=== PATIENT | female | born 1955 | race Caucasian/White ===

== ENCOUNTER 2022-01-25 10:09 | Inpatient (IN) | payer MEDICARE, OTHER ==
[~2022-01-25] VITALS: Ht 149.9 cm; Wt 59.2 kg
[~2022-01-25 10:09] MED LIST: INSLAN SQ; INSNOV SQ; METH10 PO
[2022-01-25 10:36] LABS: GLUCOMETER DEV NAME(LOC) ERT.5; GLUCOSE,POINT OF CARE 193 MG/DL (70-110)
[2022-01-25 11:48] LABS: BASOPHILS % (AUTO) 0.2 % (0.0-2.0); EOSINOPHILS % (AUTO) 0.3 % (1.0-6.0); HEMATOCRIT 27.5 % (36-46); HEMOGLOBIN 9.2 g/dL (12.0-16.0); LYMPHOCYTES # (AUTO) 0.7 K/uL (1.0-4.8); LYMPHOCYTES % (AUTO) 6.3 % (22.0-44.0); MEAN CORPUSCULAR HEMOGLOBIN 29.8 pg (26.0-34.0); MEAN CORPUSCULAR HGB CONC 33.3 G/dL (31.0-37.0); MEAN CORPUSCULAR VOLUME 89 fL (80-100); MONOCYTES # (AUTO) 0.7 K/uL (0.1-1.0); MONOCYTES % (AUTO) 6.4 % (2.0-9.0); NEUTROPHILS # (AUTO) 9.5 K/uL (1.8-7.7); PLATELET COUNT (AUTO) 579 K/uL (150-450); RED BLOOD CELL COUNT(AUTO) 3.07 MIL/uL (4.00-5.20); RED CELL DISTRIBUTION WIDTH 15.8 % (11.5-14.5)
[2022-01-25 11:49] LABS: NEUTROPHILS % (AUTO) 86.8 % (40.0-70.0)
[2022-01-25 12:02] LABS: CALCIUM, TOTAL 8.5 mg/dL (8.8-10.5); CREATININE 3.07 mg/dL (0.60-1.30); POTASSIUM 5.5 mmol/L (3.5-5.1)
[2022-01-25 12:04] LABS: ALBUMIN 1.2 g/dL (3.4-5.0); TOTAL PROTEIN, SERUM 6.3 g/dL (6.4-8.2)
[2022-01-25 12:16] LABS: COVID AG,FIA SOURCE NASOPHARYNGEAL
[2022-01-25 12:26] LABS: BILIRUBIN,TOTAL 0.1 mg/dL (0.1-1.0)
[2022-01-25] MEDS ORDERED: OxyCODONE HCL/ACETAMINOPHEN 5-325 MG TABLET PO PRN (12:30)
[2022-01-25] MEDS ORDERED: ACETAMINOPHEN 325 MG TABLET PO PRN (12:30)
[2022-01-25] MEDS ORDERED: DEXTROSE 50%-WATER 25 GM/50 ML SYRINGE IVP PRN (12:30)
[2022-01-25] MEDS ORDERED: ONDANSETRON HCL 4 MG/2 ML VIAL IVP PRN (12:30)
[2022-01-25] MEDS ORDERED: FUROSEMIDE 20 MG/2 ML VIAL IVP SCH (13:45)
[2022-01-25] MEDS: METHADONE HCL 10 MG TABLET PO SCH (14:05)
[2022-01-25 14:28] LABS: APPEARANCE,URINE CLEAR (CLEAR); BILIRUBIN,URINE NEGATIVE (NEGATIVE); GLUCOSE, URINE (UA) 300-500 mg/dL (NEGATIVE); KETONES,URINE NEGATIVE (NEGATIVE); LEUKOCYTE ESTERASE ,URINE NEGATIVE (NEGATIVE); NITRATE,URINE NEGATIVE (NEGATIVE); OCCULT BLOOD,URINE TRACE (NEGATIVE); PH,URINE 6.5 (5.0-8.0); PROTEIN,URINE >600,SEE CONFIRM mg/dL (NEGATIVE); SPECIFIC GRAVITIY, URINE 1.017 (1.003-1.030); UROBILINOGEN,URINE <=1.0 mg/dL (<=1.0)
[2022-01-25 14:48] LABS: BACTERIA,URINE None Seen /HPF (None Seen); RBC,URINE 0-2 /HPF (0-2); WBC,URINE None Seen /HPF (0-5)
[2022-01-25 14:49] LABS: SULFOSALICYLIC ACID,URINE 3+ (Negative)
[2022-01-25 17:41] VITALS: BP 116/65
[2022-01-25] MEDS: SODIUM ZIRCONIUM CYCLOSILICATE 5 GM POWDER PACKET PO SCH (19:07)
[2022-01-25] MEDS ORDERED: PNEUMOCOCCAL VACCINE POLYVALENT 0.5 ML VIAL [PPSV23] IM. ONE (19:15)
[2022-01-25 19:29] VITALS: BP 132/88
[2022-01-25 20:15] LABS: APPEARANCE,URINE CLEAR (CLEAR); BILIRUBIN,URINE NEGATIVE (NEGATIVE); GLUCOSE, URINE (UA) 70-100 mg/dL (NEGATIVE); KETONES,URINE NEGATIVE (NEGATIVE); LEUKOCYTE ESTERASE ,URINE NEGATIVE (NEGATIVE); NITRATE,URINE NEGATIVE (NEGATIVE); OCCULT BLOOD,URINE TRACE (NEGATIVE); PROTEIN,URINE 300-600,SEE CONFIRM mg/dL (NEGATIVE); SPECIFIC GRAVITIY, URINE 1.009 (1.003-1.030); UROBILINOGEN,URINE <=1.0 mg/dL (<=1.0)
[2022-01-25] MEDS: DOCUSATE SODIUM 100 MG CAPSULE PO SCH (20:46)
[2022-01-25] MEDS: HEPARIN SODIUM,PORCINE 5,000 UNITS/ML VIAL SQ SCH (20:47)
[2022-01-25] MEDS: FUROSEMIDE 40 MG/4 ML VIAL IVP SCH (20:47)
[2022-01-25] MEDS: OxyCODONE HCL/ACETAMINOPHEN 5-325 MG TABLET PO PRN (20:48)
[2022-01-25] MEDS: INSULIN LISPRO 100 UNITS/ML SQ PRN (21:07)
[2022-01-25 21:26] LABS: GLUCOMETER DEV NAME(LOC) 5S.2B; GLUCOSE,POINT OF CARE 190 MG/DL (70-110)
[2022-01-25 23:52] VITALS: BP 142/77
[2022-01-26 03:38] LABS: BACTERIA,URINE None Seen /HPF (None Seen); RBC,URINE 0-2 /HPF (0-2); WBC,URINE None Seen /HPF (0-5)
[2022-01-26 03:39] LABS: SQUAMOUS EPITHELIAL CELL,UR Few /LPF (None Seen)
[2022-01-26 03:57] LABS: SODIUM,URINE RANDOM 73 mmol/l (20-110); UREA NITROGEN,URINE RANDOM 182 mg/dL (350-1000)
[2022-01-26 04:12] LABS: CREATININE,URINE RANDOM 11.6 mg/dL (30.0-125.0)
[2022-01-26 04:29] VITALS: BP 130/69
[2022-01-26 05:12] LABS: PROTEIN,URINE RANDOM 402 mg/dL (0-11.9)
[2022-01-26] MEDS: OxyCODONE HCL/ACETAMINOPHEN 5-325 MG TABLET PO PRN (05:48)
[2022-01-26 06:06] LABS: GLUCOMETER DEV NAME(LOC) 5N.1C; GLUCOSE,POINT OF CARE 132 MG/DL (70-110)
[2022-01-26] MEDS: INSULIN LISPRO 100 UNITS/ML SQ PRN ×2 (06:35→17:41)
[2022-01-26 07:19] LABS: % IRON SATURATION 13.9 % (22-44)
[2022-01-26 07:23] LABS: CALCIUM, TOTAL 8.5 mg/dL (8.8-10.5); CREATININE 3.17 mg/dL (0.60-1.30)
[2022-01-26 07:50] VITALS: BP 123/73
[2022-01-26] MEDS: FUROSEMIDE 40 MG/4 ML VIAL IVP SCH ×2 (08:04→20:20)
[2022-01-26] MEDS: FAMOTIDINE 20 MG TABLET PO SCH (08:10)
[2022-01-26] MEDS: SODIUM ZIRCONIUM CYCLOSILICATE 5 GM POWDER PACKET PO SCH (08:10)
[2022-01-26] MEDS: HEPARIN SODIUM,PORCINE 5,000 UNITS/ML VIAL SQ SCH (08:10)
[2022-01-26] MEDS: DOCUSATE SODIUM 100 MG CAPSULE PO SCH ×2 (08:11→20:20)
[2022-01-26] MEDS: METHADONE HCL 10 MG TABLET PO SCH (08:11)
[2022-01-26 11:50] VITALS: BP 123/73
[2022-01-26 12:01] LABS: GLUCOMETER DEV NAME(LOC) 5N.1C; GLUCOSE,POINT OF CARE 108 MG/DL (70-110)
[2022-01-26 12:01] LABS: GLUCOMETER DEV NAME(LOC) 5S.2B; GLUCOSE,POINT OF CARE 216 MG/DL (70-110)
[2022-01-26 16:15] VITALS: BP 124/58
[2022-01-26 18:42] LABS: GLUCOMETER DEV NAME(LOC) 5N.1C; GLUCOSE,POINT OF CARE 174 MG/DL (70-110)
[2022-01-26 20:29] VITALS: BP 121/74
[2022-01-26 20:40] LABS: GLUCOMETER DEV NAME(LOC) 5N.1C; GLUCOSE,POINT OF CARE 135 MG/DL (70-110)
[2022-01-27 00:04] VITALS: BP 146/70
[2022-01-27 04:42] VITALS: BP 115/61
[2022-01-27 06:26] LABS: GLUCOMETER DEV NAME(LOC) 5N.1C; GLUCOSE,POINT OF CARE 122 MG/DL (70-110)
[2022-01-27 07:37] LABS: PROTHROMBIN TIME 11.1 SEC (9.4-11.6)
[2022-01-27 08:10] VITALS: BP 121/67
[2022-01-27] MEDS: SODIUM ZIRCONIUM CYCLOSILICATE 5 GM POWDER PACKET PO SCH (09:00)
[2022-01-27] MEDS: FUROSEMIDE 40 MG/4 ML VIAL IVP SCH ×2 (09:02→20:50)
[2022-01-27] MEDS: METHADONE HCL 10 MG TABLET PO SCH (09:04)
[2022-01-27] MEDS: DOCUSATE SODIUM 100 MG CAPSULE PO SCH ×2 (09:05→20:50)
[2022-01-27] MEDS: FAMOTIDINE 20 MG TABLET PO SCH (09:05)
[2022-01-27] MEDS: SOD FERRIC GLUC COMPLX/SUCROSE 125 MG in SODIUM CHLORIDE 0.9% 100 ML IV SCH (11:00)
[2022-01-27] MEDS ORDERED: SODIUM CHLORIDE 0.9% 1,000 ML ONE (11:34)
[2022-01-27 12:09] VITALS: BP 130/78
[2022-01-27] MEDS ORDERED: MIDAZOLAM HCL 2 MG/2 ML VIAL ONE (12:35)
[2022-01-27] MEDS ORDERED: FentaNYL CITRATE PF 100 MCG/2 ML VIAL ONE (12:35)
[2022-01-27] MEDS ORDERED: FLUMAZENIL 0.1 MG/ML 5 ML VIAL IVP ONE (12:36)
[2022-01-27] MEDS ORDERED: NALOXONE HCL 0.4 MG/ML VIAL ONE (12:36)
[2022-01-27] MEDS ORDERED: GELATIN SPONGE,ABSORBABLE 12-7 MM TP ONE (12:36)
[2022-01-27] MEDS ORDERED: LIDOCAINE/PF 1% 30 ML VIAL ONE (12:36)
[2022-01-27 13:21] LABS: GLUCOMETER DEV NAME(LOC) 5N.1C; GLUCOSE,POINT OF CARE 137 MG/DL (70-110)
[2022-01-27] MEDS ORDERED: MIDAZOLAM HCL 2 MG/2 ML VIAL IVP ONE (14:15)
[2022-01-27] MEDS ORDERED: FentaNYL CITRATE PF 100 MCG/2 ML VIAL IVP ONE (14:15)
[2022-01-27] MEDS ORDERED: ESCI10 PO (14:23)
[2022-01-27] MEDS ORDERED: METF-446 PO (14:23)
[2022-01-27 15:01] VITALS: BP 148/81
[2022-01-27] MEDS ORDERED: METHADONE HCL 10 MG TABLET PO ONE (15:30)
[2022-01-27] MEDS: VITAMIN B COMP/VIT C/FOLIC ACID CAPSULE PO SCH (15:45)
[2022-01-27] MEDS: INSULIN LISPRO 100 UNITS/ML SQ PRN ×2 (18:10→20:50)
[2022-01-27 18:36] LABS: GLUCOMETER DEV NAME(LOC) 5S.2B; GLUCOSE,POINT OF CARE 249 MG/DL (70-110)
[2022-01-27 20:21] LABS: GLUCOMETER DEV NAME(LOC) 5S.2B; GLUCOSE,POINT OF CARE 178 MG/DL (70-110)
[2022-01-27 20:39] VITALS: BP_SYST 114; BP_SYST 135; BP_DIAS 63; BP_DIAS 73
[2022-01-28 00:19] VITALS: BP 131/70
[2022-01-28 04:06] LABS: HIV 1-2 SCREEN 4TH GEN W/RFLX Non Reactive (Non Reactive)
[2022-01-28 05:02] VITALS: BP 132/71
[2022-01-28 06:21] LABS: GLUCOMETER DEV NAME(LOC) 5N.1C; GLUCOSE,POINT OF CARE 150 MG/DL (70-110)
[2022-01-28 07:34] LABS: BASOPHILS % (AUTO) 0.8 % (0.0-2.0); EOSINOPHILS % (AUTO) 1.9 % (1.0-6.0); HEMATOCRIT 28.7 % (36-46); HEMOGLOBIN 9.5 g/dL (12.0-16.0); LYMPHOCYTES # (AUTO) 1.2 K/uL (1.0-4.8); LYMPHOCYTES % (AUTO) 18.8 % (22.0-44.0); MEAN CORPUSCULAR HGB CONC 33.3 G/dL (31.0-37.0); MEAN CORPUSCULAR VOLUME 87 fL (80-100); MONOCYTES # (AUTO) 0.8 K/uL (0.1-1.0); MONOCYTES % (AUTO) 12.9 % (2.0-9.0); NEUTROPHILS # (AUTO) 4.1 K/uL (1.8-7.7); NEUTROPHILS % (AUTO) 65.6 % (40.0-70.0); PLATELET COUNT (AUTO) 602 K/uL (150-450); RED BLOOD CELL COUNT(AUTO) 3.29 MIL/uL (4.00-5.20); RED CELL DISTRIBUTION WIDTH 15.6 % (11.5-14.5)
[2022-01-28 07:47] LABS: CALCIUM, TOTAL 8.5 mg/dL (8.8-10.5); CREATININE 3.25 mg/dL (0.60-1.30); MAGNESIUM 2.6 mg/dL (1.80-2.40); PHOSPHORUS 5.9 mg/dL (2.5-4.9); POTASSIUM 3.7 mmol/L (3.5-5.1)
[2022-01-28 07:55] VITALS: BP 162/76
[2022-01-28 08:07] LABS: HEPATITIS C AB (EIA) >11.0 s/co ratio (0.0-0.9)
[2022-01-28] MEDS ORDERED: METHADONE HCL 10 MG TABLET PO SCH (09:00)
[2022-01-28] MEDS: FAMOTIDINE 20 MG TABLET PO SCH (09:03)
[2022-01-28] MEDS: FUROSEMIDE 40 MG/4 ML VIAL IVP SCH (09:04)
[2022-01-28] MEDS: VITAMIN B COMP/VIT C/FOLIC ACID CAPSULE PO SCH (09:10)
[2022-01-28] MEDS: DOCUSATE SODIUM 100 MG CAPSULE PO SCH (09:12)
[2022-01-28] MEDS ORDERED: FURO20 PO (09:48)
[2022-01-28] MEDS: SOD FERRIC GLUC COMPLX/SUCROSE 125 MG in SODIUM CHLORIDE 0.9% 100 ML IV SCH (11:26)
[2022-01-28] MEDS: INSULIN LISPRO 100 UNITS/ML SQ PRN (12:15)
[2022-01-28 18:11] LABS: GLUCOMETER DEV NAME(LOC) 5S.2B; GLUCOSE,POINT OF CARE 332 MG/DL (70-110)
[2022-01-30 13:06] LABS: ALPHA-1 (IFE & PEP) 0.5 g/dL (0.0-0.4); BETA (IFE & ELP) 0.9 g/dL (0.7-1.3); GAMMA GLOBULINS (IFE & ELP) 1.5 g/dL (0.4-1.8); IGM (IMMUNOFIXATION) 298 mg/dL (26-217)
== END 2022-01-28 14:55 | disposition home or self-care (01) | DRG 469 ==
LOC: EMS 10:09 → 5S 15:24
PROVIDERS: ADMIT Internal Medicine; ATTEND Internal Medicine
DX: N17.9 Acute kidney failure, unspecified (principal); I27.20 Pulmonary hypertension, unspecified; D63.1 Anemia in chronic kidney disease; E88.09 Other disorders of plasma-protein metabolism, not elsewhere classified; E87.1 Hypo-osmolality and hyponatremia; E11.22 Type 2 diabetes mellitus with diabetic chronic kidney disease; D50.9 Iron deficiency anemia, unspecified; L03.90 Cellulitis, unspecified; R60.0 Localized edema; N18.4 Chronic kidney disease, stage 4 (severe); E87.5 Hyperkalemia; F11.10 Opioid abuse, uncomplicated; Z20.822 Contact with and (suspected) exposure to COVID-19; F17.210 Nicotine dependence, cigarettes, uncomplicated; B19.20 Unspecified viral hepatitis C without hepatic coma; Z79.899 Other long term (current) drug therapy
CPT/HCPCS: 50200; 71045; 76770; 76942; 80048; 80053; 81001; 81002; 82043; 82570; 82728; 82784; 82962; 83036; 83520; 83540; 83550; 83690; 83735; 83880; 83970; 84100; 84155; 84156; 84165; 84300; 84484; 84540; 85025; 85610; 85730; 86038; 86160; 86225; 86334; 86592; 86803; 87340; 87389; 93005; 93306; 99291; J1644; J1940; J2250; J2310; J2916; J3010; J3490; J7030; J7050; Q9967; 36415-L1; 36415-TC

== ENCOUNTER 2022-06-10 12:00 | Emergency (ER) | payer MEDICARE, OTHER ==
[~2022-06-10] VITALS: Ht 149.9 cm; Wt 62.7 kg
[~2022-06-10 12:00] MED LIST changes: +FURO20 PO; -INSNOV SQ
[2022-06-10 17:20] VITALS: BP 126/74
== END 2022-06-10 17:37 | disposition home or self-care (01) ==
LOC: EMS 12:03
DX: T40.1X1A Poisoning by heroin, accidental (unintentional), initial encounter (principal); E11.9 Type 2 diabetes mellitus without complications; F32.A Depression, unspecified; F11.90 Opioid use, unspecified, uncomplicated; F17.210 Nicotine dependence, cigarettes, uncomplicated; Z86.39 Personal history of other endocrine, nutritional and metabolic disease; Z86.69 Personal history of other diseases of the nervous system and sense organs; Y92.89 Other specified places as the place of occurrence of the external cause
CPT/HCPCS: 99281; Z7502